=== PATIENT | male | born 1985 | race Caucasian/White ===

== ENCOUNTER → 2018-08-15 10:14 | Outpatient (CLI) | payer OTHER, SELFPAY ==
--- NOTE | 2018-08-15 08:00 | RAD_ITS ---
CLINICAL HISTORY: Male, 33 years old. Left shoulder pain. PROCEDURE: ARTHROGRAM - LEFT SHOULDER CONSENT: The procedure as well as the benefits and possible complications including infection and bleeding were explained to the patient. Informed consent was obtained. FLUOROSCOPY TIME (if supplied): (1:28) minutes/seconds. 4 images were obtained. Injection Information: 10 cc of dilute Magnevist. TECHNIQUE: (All elements of maximal sterile barrier technique followed, including US elements as applicable) The patient was in the supine position. The overlying skin was prepped and draped in usual sterile fashion. Following local anesthetic application and under direct fluoroscopic guidance, a 22-gauge spinal needle was placed into the shoulder cavity. 2 cc of Isovue-300 was injected for confirmation. Following this, 10 cc of dilute Magnevist was injected. MRI scan or follow-up. The patient tolerated the procedure well. RAD/Arthrogram Shoulder w/ MRI IMPRESSION: Left shoulder arthrogram for MRI imaging. Electronically Signed: Hemal Townsend MD at 13:34 EST Tel [phone], Service support ,
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
== END ==
PROVIDERS: Referring Provider Physician Assistant; Visit Provider Physician Assistant
DX: M25.512 Pain in left shoulder (principal)
CPT/HCPCS: 23350; 73222; 77002; A9577; Q9967